=== PATIENT | female | born 2000 | race Two or more races ===

== ENCOUNTER → 2024-06-14 13:59 | Outpatient (CLI) | payer OTHER | END | disposition home or self-care (01) | LOC: PRENATAL 13:59 | PROVIDERS: ATTEND Obstetrics & Gynecology Maternal & Fetal Medicine | DX: O36.80X0 Pregnancy with inconclusive fetal viability, not applicable or unspecified (principal); Z36.82 Encounter for antenatal screening for nuchal translucency; Z36.9 Encounter for antenatal screening, unspecified; Z14.8 Genetic carrier of other disease; Z3A.13 13 weeks gestation of pregnancy ==

== ENCOUNTER 2024-07-30 13:03 | Outpatient (CLI) | payer OTHER | END 2024-07-30 13:04 | disposition home or self-care (01) | LOC: PRENATAL 13:03 | PROVIDERS: ATTEND Obstetrics & Gynecology Maternal & Fetal Medicine | DX: O35.3XX0 Maternal care for (suspected) damage to fetus from viral disease in mother, not applicable or unspecified (principal); O44.00 Complete placenta previa NOS or without hemorrhage, unspecified trimester; Z3A.19 19 weeks gestation of pregnancy ==

== ENCOUNTER 2024-10-19 11:47 | Outpatient (CLI) | payer OTHER ==
[2024-10-19 10:56] VITALS: BP 99/63
[2024-10-19] MEDS ORDERED: RINGERS SOLUTION,LACTATED 1,000 ML IV SCH (12:00)
[2024-10-19] MEDS ORDERED: PRENATAL TABLE1 EAC1 PO (12:11)
[2024-10-19 12:16] LABS: URINE APPEARANCE Clear; URINE BILIRRUBIN Negative (NEGATIVE); URINE BLOOD Negative; URINE COLOR Yellow; URINE GLUCOSE Negative (NEGATIVE); URINE KETONE Negative (NEGATIVE); URINE LEUKOCYTE Negative; URINE NITRATE Negative; URINE PROTEIN Negative (NEGATIVE); URINE UROBILINOGEN 0.2 E.U./dl
[2024-10-19 12:17] LABS: HEMATOCRIT 29.5 % (36.0-45.00); MEAN CELL VOLUME 78.3 fL (80.00-100.00); MEAN CORPUSCULAR HGB CONC 33.5 g/dl (32.0-36.0); PLATELET COUNT 272 K/uL (150-450); RED BLOOD COUNT 3.77 M/uL (4.00-6.00); RED CELL DISTRIBUTION WIDTH 13.5 % (11.5-14.5)
[2024-10-19 12:18] LABS: HEMOGLOBIN 9.9 g/dL (12.0-15.00); MEAN CORPUSCULAR HEMOGLOBIN 26.2 pg (27.00-32.0); URINE BACTERIA 1260.2 uL (0.0-1933); URINE EPITHELIAL CELLS 3.7 uL (0.0-38.8); URINE WBC 4.5 uL (0.0-23.2)
[2024-10-19 12:19] LABS: URINE RBC 1.1 uL (0.0-20.8)
[2024-10-19] MEDS ORDERED: SOD FERRIC GLUC COMPLX/SUCROSE 125 MG in 0.9 % SODIUM CHLORIDE 100 ML IV NR (14:15)
[2024-10-19 15:07] VITALS: BP 95/61
[2024-10-19] MEDS ORDERED: TERBUTALINE SULFATE 1 MG/ML AMPUL SUBCUTANEO SCH (15:45)
[2024-10-19 19:36] VITALS: BP 96/60
[2024-10-19 23:36] VITALS: BP 98/54
[2024-10-20 04:08] VITALS: BP 90/55
[2024-10-20 06:49] VITALS: BP 90/55; O2SAT 98
[2024-10-20] MEDS ORDERED: SOD FERRIC GLUC COMPLX/SUCROSE 125 MG in 0.9 % SODIUM CHLORIDE 100 ML IV SCH (09:00)
[2024-10-20 11:49] VITALS: BP 87/52; O2SAT 100
[2024-10-20 12:00] VITALS: BP 99/65
[2024-10-20 13:46] VITALS: BP 99/65
== END 2024-10-20 14:24 | disposition home or self-care (01) ==
LOC: OBS/DEL 11:47
PROVIDERS: ATTEND Obstetrics & Gynecology
DX: O46.93 Antepartum hemorrhage, unspecified, third trimester (principal); O99.013 Anemia complicating pregnancy, third trimester; O26.849 Uterine size-date discrepancy, unspecified trimester; O36.8199 Decreased fetal movements, unspecified trimester, other fetus; O60.00 Preterm labor without delivery, unspecified trimester; Z3A.32 32 weeks gestation of pregnancy

== ENCOUNTER 2024-11-09 09:23 | Outpatient (CLI) | payer OTHER ==
[~2024-11-09 09:23] MED LIST: PRENATAL TABLE1 EAC1 PO
== END 2024-11-09 09:25 | disposition home or self-care (01) ==
LOC: PRENATAL 09:23
PROVIDERS: ATTEND Obstetrics & Gynecology Maternal & Fetal Medicine
DX: O26.849 Uterine size-date discrepancy, unspecified trimester (principal); O36.8199 Decreased fetal movements, unspecified trimester, other fetus; O99.019 Anemia complicating pregnancy, unspecified trimester; Z3A.34 34 weeks gestation of pregnancy

== ENCOUNTER 2024-12-02 13:36 | Inpatient (IN) | payer OTHER ==
[~2024-12-02] VITALS: Ht 157.5 cm; Wt 52.2 kg
[2024-12-02 12:40] VITALS: BP 108/67
[2024-12-02] MEDS ORDERED: AMPICILLIN SODIUM 2,000 MG VIAL IV ONE (13:45)
[2024-12-02] MEDS ORDERED: RINGERS SOLUTION,LACTATED 1,000 ML IV SCH (13:45)
[2024-12-02 14:36] LABS: PH,URINE 6.5 (5.0-8.0); URINE APPEARANCE Cloudy; URINE BILIRRUBIN Negative (NEGATIVE); URINE BLOOD Negative; URINE COLOR Yellow; URINE GLUCOSE Negative (NEGATIVE); URINE KETONE Negative (NEGATIVE); URINE LEUKOCYTE Small; URINE NITRATE Negative; URINE PROTEIN Negative (NEGATIVE); URINE UROBILINOGEN 0.2 E.U./dl
[2024-12-02 14:38] LABS: HEMATOCRIT 37.4 % (36.0-45.00); HEMOGLOBIN 12.3 g/dL (12.0-15.00); MEAN CELL VOLUME 79.4 fL (80.00-100.00); MEAN CORPUSCULAR HEMOGLOBIN 26.1 pg (27.00-32.0); MEAN CORPUSCULAR HGB CONC 32.9 g/dl (32.0-36.0); PLATELET COUNT 209 K/uL (150-450); RED BLOOD COUNT 4.71 M/uL (4.00-6.00)
[2024-12-02 14:40] LABS: RED CELL DISTRIBUTION WIDTH 17.1 % (11.5-14.5)
[2024-12-02 14:41] LABS: URINE BACTERIA 3197.8 uL (0.0-1933); URINE EPITHELIAL CELLS 93.3 uL (0.0-38.8); URINE RBC 4.1 uL (0.0-20.8); URINE WBC 60.7 uL (0.0-23.2)
[2024-12-02 15:00] LABS: URINE MUCUS SCANT
[2024-12-02 15:17] VITALS: BP 107/71
[2024-12-02 15:22] LABS: ALBUMIN 3.2 gm/dL (3.4-5.0); BILIRUBIN TOTAL 0.3 mg/dL (0.3-1.2); CALCIUM 9.2 mg/dL (8.5-10.1); CREATININE SERUM 0.76 mg/dL (0.55-1.02); GFR 94.31; POTASSIUM 4.34 mEq/L (3.5-5.1); TOTAL PROTEIN 7.2 gm/dL (6.4-8.2)
[2024-12-02 16:08] LABS: INR < 0.93; PARTIAL THROMBOPLASTIN TIME 28.4 SECONDS (22.0-34.0); PROTHROMBIN TIME 9.8 SECONDS (9.0-11.5)
[2024-12-02] MEDS ORDERED: AMPICILLIN SODIUM 1,000 MG VIAL IV SCH (17:00)
[2024-12-02 19:36] VITALS: BP 125/75
[2024-12-02 22:15] VITALS: BP 124/74
[2024-12-02] MEDS ORDERED: MORPHINE SULFATE 4 MG/ML VIAL IV ONE (22:15)
[2024-12-03] VITALS (12 sets, daily range): BP systolic 108–149; BP diastolic 63–94
[2024-12-03] MEDS ORDERED: ERYTHROMYCIN BASE OPHT 1GM EACH TUBE OP ONE ×2 (01:46→11:15)
[2024-12-03] MEDS ORDERED: OXYTOCIN 20 UNITS/1000ML RL PIGGYBAG IV ONE (01:46)
[2024-12-03] MEDS ORDERED: CHLORHEXIDINE GLUCONATE 120 ML BOTTLE TOP ONE ×2 (01:47→11:15)
[2024-12-03] MEDS ORDERED: LIDOCAINE HCL 1% 10ML VIAL ONE (01:47)
[2024-12-03] MEDS ORDERED: OXYTOCIN 10 UNITS/ML VIAL ONE (01:47)
[2024-12-03] MEDS ORDERED: OXYTOCIN 20 UNITS/500ML RL PIGGYBAG IV ONE (08:33)
[2024-12-03] MEDS ORDERED: OXYTOCIN 500 ML IV ONE (11:00)
[2024-12-03] MEDS ORDERED: OXYTOCIN 20 UNITS/1000ML RL PIGGYBAG IV SCH (11:15)
[2024-12-03] MEDS ORDERED: LIDOCAINE HCL 1% 10ML VIAL PERCUT ONE (11:15)
[2024-12-03] MEDS ORDERED: OXYTOCIN 10 UNITS/ML VIAL IM ONE (11:15)
[2024-12-03] MEDS ORDERED: IBUprofen 400 MG TABLET PO PRN (11:30)
[2024-12-03] MEDS ORDERED: OXYTOCIN 1,000 ML IV SCH (11:45)
[2024-12-03 16:04] LABS: BASO % 0.1 % (0.1-1.2); HEMATOCRIT 38.3 % (34.1-44.9); HEMOGLOBIN 12.7 g/dL (11.2-15.7); LYMPH % 8.5 % (19.3-53.1); MEAN CORPUSCULAR HEMOGLOBIN 25.7 pg (25.6-32.2); MONO # 0.75 (0.24-0.82); MONO % 5.3 % (4.7-12.5); NEUT # 12.12 (1.56-6.13); NEUT % 85.7 % (34.0-71.1); PLATELET COUNT 224 K/uL (163-369); RED BLOOD COUNT 4.94 M/uL (3.93-5.22)
[2024-12-04] VITALS: BP 113/68
[2024-12-04 09:15] VITALS: BP 110/74
[2024-12-04 16:50] VITALS: BP 134/90
[2024-12-04 20:46] VITALS: BP 147/92
[2024-12-05] VITALS: BP 142/86
[2024-12-05 05:00] VITALS: BP 126/87
[2024-12-05 08:00] VITALS: BP 133/88
== END 2024-12-05 15:03 | disposition home or self-care (01) | DRG 807 ==
LOC: OBS/DEL 13:36 → OB/GYN 12-03 02:28 → LDR 12-03 02:28 → OB/GYN 12-03 12:38
PROVIDERS: ADMIT Obstetrics & Gynecology; ATTEND Obstetrics & Gynecology
PROC: 10E0XZZ Delivery of Products of Conception, External Approach (ICD-10-PCS; principal; 2024-12-03)
PROC: 0UQG7ZZ Repair Vagina, Via Natural or Artificial Opening (ICD-10-PCS; 2024-12-03)
PROC: 4A1HXCZ Monitoring of Products of Conception, Cardiac Rate, External Approach (ICD-10-PCS; 2024-12-03)
DX: O71.4 Obstetric high vaginal laceration alone (principal); Z37.0 Single live birth; O99.824 Streptococcus B carrier state complicating childbirth; Z3A.37 37 weeks gestation of pregnancy